=== PATIENT | male | born 1960 | race Caucasian/White ===

== ENCOUNTER → 2019-06-16 | Outpatient (CLI) | payer MEDICARE, OTHER ==
[~2019-06-16] MED LIST: ALBU90OI INH; ATOR40TA PO; BENZ100A PO; Flonase 0.05% N16 GM; GLIM4 PO; HYDR1TAB94 PO; LEVIMIR SC; LISI20 PO; LISI5 PO; METF500 PO; PANT40 PO; PRODEXEL PO; SPACE CHAMBER1 EACH MC; TAMS.4ER PO; TOUJEO SOL300 UNIT/1; XARELTO20 MG PO
== END | disposition home or self-care (01) ==
LOC: LAB 14:15 → LAB SHORT 14:15
DX: H60.501 Unspecified acute noninfective otitis externa, right ear (principal)
CPT/HCPCS: 87070; 87205

== ENCOUNTER 2019-08-08 11:34 | Inpatient (IN) | payer MEDICARE, OTHER ==
[~2019-08-08] VITALS: Ht 175.3 cm; Wt 106.0 kg
[~2019-08-08 11:34] MED LIST changes: -ATOR40TA PO; -LISI20 PO; -PANT40 PO; -TOUJEO SOL300 UNIT/1; -XARELTO20 MG PO
[2019-08-08 13:14] LABS: BASOPHILS ABSOLUTE AUTO 0.04 K/mm3 (0.00-0.23); BASOPHILS PERCENT AUTO 0 % (0-2); EOSINOPHILS ABSOLUTE AUTO 0.01 K/mm3 (0.00-0.68); EOSINOPHILS PERCENT AUTO 0 % (0-6); Hematocrit 46.1 % (37.0-53.0); Hemoglobin 15.5 g/dL (13.5-17.5); IMMATURE GRAN ABSOLUTE AUTO 0.15 K/mm3 (0.00-0.10); IMMATURE GRAN PERCENT AUTO 1 % (0-1); LYMPHOCYTES ABSOLUTE AUTO 1.97 K/mm3 (0.84-5.20); LYMPHOCYTES PERCENT AUTO 10 % (21-46); MONOCYTES ABSOLUTE AUTO 1.54 K/mm3 (0.16-1.47); MONOCYTES PERCENT AUTO 8 % (4-13); Mean Corpuscular HGB 29.6 pg (26.0-34.0); Mean Corpuscular HGB Conc 33.6 g/dL (31.5-36.5); Mean Corpuscular Volume 88 fL (80-100); NEUTROPHILS ABSOLUTE AUTO 16.36 K/mm3 (1.96-9.15); NEUTROPHILS PERCENT AUTO 82 % (41-73); Platelet Count 201 K/mm3 (150-400); RDW Coefficient Variation 13.3 % (11.7-14.2); RDW Standard Deviation 42.9 fL (35.1-46.3); Red Blood Cell Count 5.23 M/mm3 (4.30-5.90); White Blood Cell Count 20.07 K/mm3 (4.00-11.30)
[2019-08-08 13:30] LABS: Albumin, Blood 3.2 g/dL (3.4-5.0); Anion Gap 9 mmol/L (6-16); Blood Urea Nitrogen 11 mg/dL (8-24); CO2, Blood 25 mmol/L (21-32); Calcium, Blood 8.1 mg/dL (8.5-10.1); Chloride, Blood 104 mmol/L (98-108); Glucose, Blood 129 mg/dL (70-99); Potassium, Blood 2.9 mmol/L (3.5-5.5); Sodium, Blood 138 mmol/L (136-145)
[2019-08-08 13:35] LABS: Alanine Aminotransfer (ALT/SGP 24 U/L (12-78); Alk Phos 83 U/L (50-136); Aspartate Aminotrans (AST/SGOT 7 U/L (12-37); Bilirubin, Total 1.3 mg/dL (0.1-1.0); Bun/Creatinine Ratio 14.1 (12.0-20.0); Creatinine, Blood 0.78 mg/dL (0.60-1.20); Globulin, Blood 3.3 g/dL (2.2-4.0); Glomerular Filtration Rate >60 (60-); Total Protein, Blood 6.5 g/dL (6.4-8.2)
[2019-08-08 15:09] LABS: U Amphetamine Screen Not Detected; U Barbituate Screen Not Detected; U Benzodiazapine Screen Not Detected; U Buprenorphine Screen Not Detected; U Cannabinoids Screen Not Detected; U Cocaine Screen Not Detected; U Methadone Screen Not Detected; U Methamphetamine Screen Not Detected; U Opiates Screen DETECTED; U Oxycodone Screen Not Detected; U Phencyclidine Screen Not Detected; U Propoxyphene Screen Not Detected
[2019-08-08] MEDS ORDERED: ATOR20 PO (15:52)
[2019-08-08] MEDS ORDERED: LISI20 PO (15:52)
[2019-08-08] MEDS ORDERED: PANT40 PO (15:53)
[2019-08-08] MEDS ORDERED: METFORMIN HCL500 M3 PO (15:53)
[2019-08-08] MEDS ORDERED: XARELTO20 MG PO (15:53)
[2019-08-08] MEDS ORDERED: TRESIBA FL200 UNIT/1 SC (15:54)
[2019-08-08 16:04] LABS: Bilirubin, Urine Neg (Neg); Blood, Urine Neg (Neg); Glucose Qualitative, Urine 2+ (Neg); Ketones, Urine 3+ (Neg); Leukocyte Esterase, Urine Neg (Neg); Nitrite, Urine Neg (Neg); Protein, Urine 1+ (Neg); Specific Gravity, Urine 1.015 (1.003-1.022); Urobilinogen, Urine NORM (Normal)
[2019-08-08] MEDS ORDERED: NOVOLOG FL100 UNIT/1 SC (16:05)
[2019-08-08 16:14] LABS: Appearance, Urine Clear (Clear); Color, Urine Yellow (P-Yellow)
[2019-08-09 02:26] LABS: BASOPHILS ABSOLUTE AUTO 0.04 K/mm3 (0.00-0.23); BASOPHILS PERCENT AUTO 0 % (0-2); EOSINOPHILS PERCENT AUTO 0 % (0-6); Hematocrit 45.4 % (37.0-53.0); Hemoglobin 15.2 g/dL (13.5-17.5); IMMATURE GRAN ABSOLUTE AUTO 0.18 K/mm3 (0.00-0.10); IMMATURE GRAN PERCENT AUTO 1 % (0-1); LYMPHOCYTES ABSOLUTE AUTO 1.44 K/mm3 (0.84-5.20); LYMPHOCYTES PERCENT AUTO 7 % (21-46); MONOCYTES ABSOLUTE AUTO 1.45 K/mm3 (0.16-1.47); MONOCYTES PERCENT AUTO 7 % (4-13); Mean Corpuscular HGB 29.9 pg (26.0-34.0); Mean Corpuscular HGB Conc 33.5 g/dL (31.5-36.5); Mean Corpuscular Volume 89 fL (80-100); Mean Platelet Volume 9.8 fL (9.1-12.4); NEUTROPHILS ABSOLUTE AUTO 17.36 K/mm3 (1.96-9.15); NEUTROPHILS PERCENT AUTO 85 % (41-73); Platelet Count 186 K/mm3 (150-400); RDW Coefficient Variation 13.3 % (11.7-14.2); RDW Standard Deviation 43.8 fL (35.1-46.3); Red Blood Cell Count 5.09 M/mm3 (4.30-5.90); White Blood Cell Count 20.47 K/mm3 (4.00-11.30)
[2019-08-09 02:44] LABS: Alanine Aminotransfer (ALT/SGP 18 U/L (12-78); Albumin, Blood 2.8 g/dL (3.4-5.0); Albumin/Globulin Ratio 0.8 (0.8-1.8); Alk Phos 84 U/L (50-136); Anion Gap 10 mmol/L (6-16); Aspartate Aminotrans (AST/SGOT 12 U/L (12-37); Bilirubin, Total 1.4 mg/dL (0.1-1.0); Blood Urea Nitrogen 11 mg/dL (8-24); Bun/Creatinine Ratio 11.6 (12.0-20.0); CO2, Blood 23 mmol/L (21-32); Calcium, Blood 7.4 mg/dL (8.5-10.1); Chloride, Blood 105 mmol/L (98-108); Creatinine, Blood 0.95 mg/dL (0.60-1.20); Globulin, Blood 3.3 g/dL (2.2-4.0); Glomerular Filtration Rate >60 (60-); Glucose, Blood 117 mg/dL (70-99); Potassium, Blood 3.1 mmol/L (3.5-5.5); Sodium, Blood 138 mmol/L (136-145); Total Protein, Blood 6.1 g/dL (6.4-8.2)
--- NOTE | 2019-08-09 07:40 | NUR ---
SHIFT SUMMARY: PT HAS BEEN NPO SINCE MIDNIGHT FOR PLANNED SURGERY THIS MORNING. IV ABX AND FLUIDS INFUSING. PT GIVEN 2/2 BAGS OF POTASSIUM PER EMAR. PAIN MANAGED WITH 25MCG OF FENTANYL. IND IN ROOM AND VOIDING IN URINAL.
--- NOTE | 2019-08-09 12:20 | NUR ---
pt arrived back to room 208 from pacu pt drowsy but awake pt is s/p lap appy pt also has yeimy sero sang drainage gauze dressing c/d/i pt stated that he has mild nausea pain 12/09 pt is sweating stated he would like ice water only
--- NOTE | 2019-08-09 12:21 | NUR ---
SHIFT SUMMARY PT A/O X 4 THIS MORNING WITH NO C/O PAIN BUT HIS ABDOMEN WAS TENDER ON PALPATION. PT DENIES ANY NAUSEA. BRAIDED BAND ASSEMBLER REPORTS SINUS TACH. PT DENIES ANY CHEST PAIN OR SOB. PT WAS TRANSPORTED TO DAY SURGERY SHORTLY AFTER CHANGE OF SHIFT THIS MORNING FOR HIS SCHEDULED PROCEDURE. PT RETURNED TO HIS ROOM POST OP APPROX 1215 AND ONCOMING NURSE IS AT THE BEDSIDE WITH HIM NOW. REPORT WAS GIVEN TO ONCOMING NURSE. AND PT IS RESTING IN BED. CALL LIGHT IS IN REACH.
--- NOTE | 2019-08-09 14:58 | NUR ---
pt sleeping his brother came by earlier gave him an update on pt's cond
--- NOTE | 2019-08-09 15:53 | NUR ---
pt sleeping pt's daughter came by update given to her on his cond
--- NOTE | 2019-08-09 18:26 | NUR ---
pt stated that he cannot bobby the broth due to garlic bloating problem went and got pt a enlive juic instead for nutrition no nausea with eating
[2019-08-10 04:45] LABS: BASOPHILS ABSOLUTE AUTO 0.02 K/mm3 (0.00-0.23); BASOPHILS PERCENT AUTO 0 % (0-2); EOSINOPHILS PERCENT AUTO 0 % (0-6); Hematocrit 43.4 % (37.0-53.0); Hemoglobin 14.5 g/dL (13.5-17.5); IMMATURE GRAN ABSOLUTE AUTO 0.11 K/mm3 (0.00-0.10); IMMATURE GRAN PERCENT AUTO 1 % (0-1); LYMPHOCYTES ABSOLUTE AUTO 1.21 K/mm3 (0.84-5.20); LYMPHOCYTES PERCENT AUTO 8 % (21-46); MONOCYTES ABSOLUTE AUTO 0.86 K/mm3 (0.16-1.47); MONOCYTES PERCENT AUTO 6 % (4-13); Mean Corpuscular HGB 29.7 pg (26.0-34.0); Mean Corpuscular HGB Conc 33.4 g/dL (31.5-36.5); Mean Corpuscular Volume 89 fL (80-100); Mean Platelet Volume 10.3 fL (9.1-12.4); NEUTROPHILS ABSOLUTE AUTO 12.68 K/mm3 (1.96-9.15); NEUTROPHILS PERCENT AUTO 85 % (41-73); Platelet Count 168 K/mm3 (150-400); RDW Coefficient Variation 13.1 % (11.7-14.2); RDW Standard Deviation 42.7 fL (35.1-46.3); Red Blood Cell Count 4.88 M/mm3 (4.30-5.90); White Blood Cell Count 14.88 K/mm3 (4.00-11.30)
[2019-08-10 05:07] LABS: Anion Gap 7 mmol/L (6-16); Blood Urea Nitrogen 16 mg/dL (8-24); Bun/Creatinine Ratio 18.6 (12.0-20.0); CO2, Blood 25 mmol/L (21-32); Calcium, Blood 7.6 mg/dL (8.5-10.1); Chloride, Blood 105 mmol/L (98-108); Creatinine, Blood 0.86 mg/dL (0.60-1.20); Glomerular Filtration Rate >60 (60-); Glucose, Blood 222 mg/dL (70-99); Potassium, Blood 3.4 mmol/L (3.5-5.5); Sodium, Blood 137 mmol/L (136-145)
--- NOTE | 2019-08-10 06:35 | NUR ---
POD 1 S/P LAP APPY. PT VSS T/O NIGHT. PAIN MGD W/TRAMADOL W/REP RELIEF. PT CHICHO CLEAR LIQ PO, NO C/O N/V, REP+FLATUS, IS VOIDING URINE W/O DIFFICULTY. PT UP OOB W/SBA, CHICHO WELL. PT USING CALL LIGHT FOR ASSISTANCE, WILL CONT TO MONITOR UNTIL REP GIVEN TO ONCOMING RN.
--- NOTE | 2019-08-10 07:30 | NUR ---
ASSUMED CARE: PT RESTING QUIETLY IN BED, ALERT AND ORIENTED, DENIED NEEDS OR CONCERNS. WATCHING TV
--- NOTE | 2019-08-10 13:46 | NUR ---
SPOKE WITH DR RODRIGUEZ REGARDING PLAN WITH PT. STATES HE FEELS PT WILL PROBABLY BE HERE FOR A FEW MORE DAYS DUE TO PT HAVE NAUSEA AND NOT TOLERATING CLEAR LIQUID DIET WELL. STATES HE WILL BE BACK TO SEE PT LATER THIS SHIFT.
--- NOTE | 2019-08-10 18:08 | NUR ---
DR RODRIGUEZ WAS IN ROOM WITH PT. CAME OUT AND TOLD THIS RN THAT PT WAS COMPLAINING OF CP. WHEN EVALUATING WITH PT, PT STATED IT HAD BEEN GOING ON FOR PAST 2 HOURS BUT HE DIDN'T SAY ANYTHING BECAUSE HE THOUGHT IT WOULD GO AWAY. CALL TO TELE REVEALED NO CHANGES. CALL TO DR GAGE WHO ORDERED EKG AND TROPONIN. LAB PENDING, EKG COMPLETED. DISCUSSED WITH BIOCHEMISTRY TEACHER. PT STATES PAIN IS NOW 7/10. THAT IT FELT LIKE A BUNCH OF NEEDLES AND RADIATED TO RIGHT SHOULDER. STATES PAIN IS CALMING DOWN AND DECLINES PAIN MEDS.
--- NOTE | 2019-08-10 18:56 | NUR ---
SHIFT SUMMARY: CALL TO DR GAGE TO GIVE UPDATE THAT PT'S CP IS IMPROVING AND THAT TROPONIN AND EKG WERE NEGATIVE. INFORMED DR GAGE THAT PT FEELS THIS IS RELATED TO ANXIETY. ORDER FOR ANXIETY MED TO BE GIVEN WHEN AVAILABLE FROM PHARMACY. NO EVENTS PER TELE. NO OTHER NEEDS AT THIS TIME.
--- NOTE | 2019-08-11 05:12 | NUR ---
POD 2 S/P LAP APPY. PT VSS. DRESSINGS INTACT, NO CHANGES IN SHADOWING ON DRESSINGS. XIAO PUTTING OUT SS DRNG. PT CHICHO SMALL CLEAR LIQ PO, NO C/O N/V, REP +FLATUS. PT VOIDING URINE W/O DIFFICULTY. PT UP OOB W/SBA, AMBULATION OUTSIDE OF ROOM ENC, PT STATES WILL ATTEMPT TODAY. PT IS USING CALL LIGHT FOR ASSISTANCE, WILL CONT TO MONITOR UNTIL REP GIVEN TO ONCOMING RN.
--- NOTE | 2019-08-11 12:56 | NUR ---
PT VERBALLY AGREED TO ALLOW ASSIST IN PROVIDING CARE ON 08/11/19 FOR 08/12/19
--- NOTE | 2019-08-11 16:31 | NUR ---
SHIFT SUMMARY PT HAS BEEN UPSPIRITED TODAY. PAIN BETTER AFTER TRAMADOL. ABD SITES WNL W/ SAME AMOUNT OF DRNG ON UMBILICUS SITE THIS AM. XIAO DRNG WNL. UP IND IN ROOM, STABLE GAIT. PT USING IS REPORTS CHEST PAIN/PRESSURE IS FEELING BETTER.
--- NOTE | 2019-08-12 04:15 | NUR ---
SUMMARY: A/OX4, CALLS APPROPRIATELY AND INDEPENDENT IN ROOM. PT IS DAY 3 S/P LAP APPY. HE REFUSED BOWEL MEDS D/T PASSING FLATUS AND HAVING X2 BM'S DURING DAY SHIFT. HE ADMITS ABDO REMAINS DISTENDED/SWOLLEN BUT HAS IMPROVED. XIAO DRAINING WNL, APPROX 20 MLS HEMOSANGUINOUS OUTPUT NOTED THIS SHIFT. DX'S TO X3 LAP APPY SITES ARE C/D/I W/O ANY NEW DRAINAGE OBSERVED. TRAMADOL WAS RECIEVED X1 FOR TOLERABLE CONTROL OF ABDO PAIN. HE REMAINS NSR AT 80'S BPM ON TELEMETRY. I/S AND DEEPER RESPIRATIONS ENCOURAGED. SPO2 WNL ON RA. VSS AND AFEBRILE. NO ACUTE CHANGES. WCTM AND REPORT TO DAY RN.
[2019-08-12 04:38] LABS: BASOPHILS ABSOLUTE AUTO 0.03 K/mm3 (0.00-0.23); BASOPHILS PERCENT AUTO 0 % (0-2); EOSINOPHILS ABSOLUTE AUTO 0.14 K/mm3 (0.00-0.68); EOSINOPHILS PERCENT AUTO 1 % (0-6); Hematocrit 40.6 % (37.0-53.0); Hemoglobin 13.4 g/dL (13.5-17.5); IMMATURE GRAN ABSOLUTE AUTO 0.12 K/mm3 (0.00-0.10); IMMATURE GRAN PERCENT AUTO 1 % (0-1); LYMPHOCYTES ABSOLUTE AUTO 3.87 K/mm3 (0.84-5.20); LYMPHOCYTES PERCENT AUTO 33 % (21-46); MONOCYTES ABSOLUTE AUTO 0.82 K/mm3 (0.16-1.47); MONOCYTES PERCENT AUTO 7 % (4-13); Mean Corpuscular HGB 29.5 pg (26.0-34.0); Mean Corpuscular Volume 89 fL (80-100); Mean Platelet Volume 10.3 fL (9.1-12.4); NEUTROPHILS ABSOLUTE AUTO 6.77 K/mm3 (1.96-9.15); NEUTROPHILS PERCENT AUTO 58 % (41-73); Platelet Count 216 K/mm3 (150-400); RDW Coefficient Variation 13.2 % (11.7-14.2); Red Blood Cell Count 4.54 M/mm3 (4.30-5.90); White Blood Cell Count 11.75 K/mm3 (4.00-11.30)
--- NOTE | 2019-08-12 09:27 | NUR ---
08/12/19 0927 Keke Rueda VERIFICATIONS: EDIT CHART.
[2019-08-12] MEDS ORDERED: TRAM50 PO (12:45)
[2019-08-12] MEDS ORDERED: AZIT500 PO (12:46)
--- NOTE | 2019-08-12 14:10 | NUR ---
DISCHARGE PT DOING WELL. REPORTS FEELING MUCH BETTER. PAIN WELL MANAGED. TOLERATING DIET. VOIDING, PASSING GAS, AND HAVING BM'S. SCRIPT GIVEN AND CALLED IN. ESCORTED OUT VIA W/C
== END 2019-08-12 14:06 | disposition home or self-care (01) | DRG 341 ==
LOC: ER 11:34 → SURS 15:56
PROVIDERS: Emergency Medicine; Internal Medicine; Surgery; ADMIT Internal Medicine
PROC: 0DTJ4ZZ Resection of Appendix, Percutaneous Endoscopic Approach (ICD-10-PCS; principal; 2019-08-09 09:00)
DX: K35.80 Unspecified acute appendicitis (principal); J18.9 Pneumonia, unspecified organism; D68.59 Other primary thrombophilia; J98.11 Atelectasis; Z79.4 Long term (current) use of insulin; E87.6 Hypokalemia
CPT/HCPCS: 36415; 71260; 74177; 80048; 80053; 82947; 83605; 84132; 84145; 84484; 85025; 88304; 93005; 93010; 96361; 96365-59; 96372-59; 96375; 96376; 99285-25; A9270-GY; C9113; J1100; J1170; J1200; J1644; J2250; J2310; J2405; J2543; J2704; J3010; J3480; J7030; Q9967

== ENCOUNTER 2019-08-26 11:00 | Emergency (ER) | payer MEDICARE, OTHER ==
[~2019-08-26] VITALS: Ht 175.3 cm; Wt 98.9 kg
[~2019-08-26 11:00] MED LIST changes: +ATOR20 PO; +AZIT500 PO; +LISI20 PO; +METFORMIN HCL500 M3 PO; +NOVOLOG FL100 UNIT/1 SC; +PANT40 PO; +TRAM50 PO; +TRESIBA FL200 UNIT/1 SC; +XARELTO20 MG PO
[2019-08-26 11:59] LABS: BASOPHILS ABSOLUTE AUTO 0.05 K/mm3 (0.00-0.23); BASOPHILS PERCENT AUTO 1 % (0-2); EOSINOPHILS ABSOLUTE AUTO 0.07 K/mm3 (0.00-0.68); EOSINOPHILS PERCENT AUTO 1 % (0-6); Hematocrit 46.4 % (37.0-53.0); Hemoglobin 15.3 g/dL (13.5-17.5); IMMATURE GRAN ABSOLUTE AUTO 0.03 K/mm3 (0.00-0.10); IMMATURE GRAN PERCENT AUTO 0 % (0-1); LYMPHOCYTES ABSOLUTE AUTO 2.96 K/mm3 (0.84-5.20); LYMPHOCYTES PERCENT AUTO 38 % (21-46); MONOCYTES ABSOLUTE AUTO 0.62 K/mm3 (0.16-1.47); MONOCYTES PERCENT AUTO 8 % (4-13); Mean Corpuscular HGB 29.5 pg (26.0-34.0); Mean Corpuscular Volume 90 fL (80-100); Mean Platelet Volume 10.1 fL (9.1-12.4); NEUTROPHILS ABSOLUTE AUTO 4.05 K/mm3 (1.96-9.15); NEUTROPHILS PERCENT AUTO 52 % (41-73); Platelet Count 241 K/mm3 (150-400); RDW Coefficient Variation 12.6 % (11.7-14.2); RDW Standard Deviation 41.8 fL (35.1-46.3); Red Blood Cell Count 5.18 M/mm3 (4.30-5.90); White Blood Cell Count 7.78 K/mm3 (4.00-11.30)
[2019-08-26 12:26] LABS: Alanine Aminotransfer (ALT/SGP 39 U/L (12-78); Albumin, Blood 3.7 g/dL (3.4-5.0); Albumin/Globulin Ratio 0.9 (0.8-1.8); Alk Phos 93 U/L (50-136); Anion Gap 8 mmol/L (6-16); Aspartate Aminotrans (AST/SGOT 18 U/L (12-37); Bilirubin, Total 0.4 mg/dL (0.1-1.0); Blood Urea Nitrogen 15 mg/dL (8-24); Bun/Creatinine Ratio 18.9 (12.0-20.0); CO2, Blood 25 mmol/L (21-32); Chloride, Blood 106 mmol/L (98-108); Creatinine, Blood 0.79 mg/dL (0.60-1.20); Globulin, Blood 3.9 g/dL (2.2-4.0); Glomerular Filtration Rate >60 (60-); Glucose, Blood 183 mg/dL (70-99); Potassium, Blood 4.1 mmol/L (3.5-5.5); Sodium, Blood 139 mmol/L (136-145); Total Protein, Blood 7.6 g/dL (6.4-8.2)
[2019-08-26] MEDS ORDERED: Ultram50 MG PO (15:40)
[2019-08-26] MEDS ORDERED: ONDA4ODT MM (15:53)
== END 2019-08-26 15:59 | disposition home or self-care (01) ==
LOC: ER 11:00
PROVIDERS: Physician Assistant
DX: G89.18 Other acute postprocedural pain (principal); R10.9 Unspecified abdominal pain; I10 Essential (primary) hypertension; E11.9 Type 2 diabetes mellitus without complications
CPT/HCPCS: 36415; 74177; 80053; 85025; 96374-59; 96375; 99283-25; J1170; J2405; Q9967